=== PATIENT | female | born 1955 | race Caucasian/White ===

== ENCOUNTER → 2017-11-11 14:15 | Outpatient (CLI) | payer OTHER, SELFPAY ==
--- NOTE | 2017-11-11 14:20 | VDLE_ITS ---
Reason For Study: SWELLING IN CALF RIGHT GSV is normal. CFV is compressible, spontaneous, phasic, competent and demonstrates normal augmentation. FV is compressible, spontaneous, phasic, competent and demonstrates normal augmentation. POP V is compressible, spontaneous, phasic, competent and demonstrates normal augmentation. T/P Trunk is compressible. PTV is compressible. RT PerV is compressible. Procedure Exam performed in department. A preliminary report was called and/or faxed to HEAVEN CHAVIRA. Interpretation Summary Deep veins of the right lower extremity are patent and compressible segmentally. There is no evidence of right lower extremity deep vein thrombosis. Valvular competence appears intact within the proximal deep venous system on the right . The right greater saphenous vein appears patent and compressible segmentally. Ordering Physician: HEAVEN CHAVIRA Referring Physician: SAVANNAH CHATTERJEE Performed By: Yolanda Lauren, BRYON, RVT
== END ==
PROVIDERS: Family Provider Family Medicine; PCP Family Medicine
DX: I82.409 Acute embolism and thrombosis of unspecified deep veins of unspecified lower extremity (principal)
CPT/HCPCS: 93971

== ENCOUNTER → 2018-03-21 08:31 | Outpatient (CLI) | payer OTHER, SELFPAY ==
[2018-03-21] VITALS (7 sets, daily range): BP systolic 130–146; BP diastolic 63–80; PULSE 65–72; RESP 16–18; TEMP 36.2–37.2; O2SAT 97–100; BMI 35.3
== END ==
PROVIDERS: Family Provider Student in an Organized Health Care Education/Training Program; PCP Student in an Organized Health Care Education/Training Program; Referring Provider Student in an Organized Health Care Education/Training Program; Visit Provider Student in an Organized Health Care Education/Training Program
DX: D50.9 Iron deficiency anemia, unspecified (principal)
CPT/HCPCS: 36430; 86850; 86900; 86920; 86922; J7040; P9016; A4216

== ENCOUNTER → 2019-02-27 08:50 | Outpatient (CLI) | payer MEDICARE, SELFPAY ==
--- NOTE | 2019-02-27 08:55 | RAD_ITS ---
PROCEDURE: Fluoroscopic guided Hip Injection DATE: February 27, 2019. INDICATION: Female, 63 years old. Right hip pain. PHYSICIAN: Ronny Bueno M.D. MEDICATIONS: 80 mg of Kenalog and 3 cc of 0.5% Marcaine. 2% lidocaine administered subcutaneously for local anesthesia. ACCESS SITE: Right hip. NEEDLE: 22-gauge spinal needle. FLUOROSCOPY TIME (if supplied): (0:41) minutes/seconds FINDINGS: The risks, benefits, and alternatives to the procedure were explained to the patient. The specific risks of bleeding, infection, and neurovascular injury were detailed and accepted. Witnessed informed consent was obtained. A 22-gauge spinal needle was positioned under radiographic fluoroscopic localization. Approximately 2 cc of Isovue-300 instilled for localization purposes. Medication was then injected. The patient tolerated the procedure well without any immediate complications. RAD/Inj/Asp Nikita Jt Should/Hip/Knee IMPRESSION: 1. Successful fluoroscopic guided hip injection. Electronically Signed: Ronny Bueno, at 9:42 EDT , Service support ,
== END ==
PROVIDERS: Family Provider Student in an Organized Health Care Education/Training Program; PCP Student in an Organized Health Care Education/Training Program; Referring Provider Orthopaedic Surgery; Visit Provider Orthopaedic Surgery
DX: M16.11 Unilateral primary osteoarthritis, right hip (principal); G89.29 Other chronic pain
CPT/HCPCS: 20610; 77002; Q9967